=== PATIENT | male | born 1955 | race Caucasian/White ===

== ENCOUNTER 2018-05-21 16:17 | Inpatient (IN) | payer OTHER ==
--- NOTE | 2018-05-21 16:18 | EDPHY ---
HPI/HX/ROS/PE/MDM Narrative: CHIEF COMPLAINT: Black tarry stool HPI: The patient is 62 y/o male arriving via [facility] complaining of black tarry stool, onset 1.5 weeks ago. Per the patient, he saw his new PCP around 1 week ago. During that visit he was prescribed blood pressure medication, but he denies taking them as he started to feel more sick. Around 4 days ago he began to feel more weak than normal and fell several times due to the weakness. He denies hitting his head when falling or losing consciousness. This weakness increased today, so he called EMS. Per EMS, the patient had a syncopal episode [facility] While en route to the hospital the patient's hematocrit was 13 and he was given 1L IV NS. His last blood pressure was 113/ 87. He is denying abdominal pain, vomiting, urinary complaints. Denies history of diabetes, cardiac disease, abdominal surgeries, history of clotting factors or taking anticoagulants. No chest pain, shortness of breath, numbness, paresthesias, headache. He does admit to drinking alcohol every day, but he did not drink any today. He does not feel like his going through withdrawal right now. REVIEW OF SYSTEMS: Aside from elements discussed in the HPI, a comprehensive 10 system review of systems is otherwise negative. PMH: Denies SOCIAL HISTORY: Lives in [place], , employed, drinks alcohol daily PHYSICAL EXAM: General: Patient is alert, pale, tremulous. ENT: Eyes are normal to inspection. ENT inspection normal. Neck: Normal inspection. Full range of motion. Respiratory: No respiratory distress. Breath sounds normal bilaterally. Cardiovascular: Tachycardic. Strong peripheral pulses. Normal cap refill. Abdomen: Mild tenderness to palpation to LUQ, moderate umbilical hernia. There are no peritoneal signs. There are normal bowel sounds. Rectal: Dark brown to black stool visualized. Back: Normal to inspection. No tenderness to palpation. Skin: Normal color. No rash. Warm and dry. Extremities: Normal appearance. Full range of motion. Neuro: Oriented x3. Normal motor function. Normal sensory function. ED Course: 1617: I met EMS upon arrival 1624: BP:110/61, O2Sats: 98% on room air, Temp: 36.4 degrees 1625: Procedure: Ultrasound for GI bleed Limited abdominal ultrasound for GI bleed. 1) No abdominal aortic aneurysm identified. The images were saved on the ultrasound database. The procedure was performed by myself, Dr. Barlow. 1630: Per the IStat, patient's hematocrit is less than 15. 1640: Patient BP is 87/66. Patient will be type and crossed for a blood transfusion. 1646: EKG was ordered and interpreted by myself. Please see [employer] system for official reading. 1648: Patient's BP is 74/56, O negative blood ordered from the lab. 1657: Reassessed patient, he is comfortable with my plan of treatment and plan for admission to the ICU. 1705: O negative blood transfusion started. 1706: Rectal exam performed; dark brown to black stool visualized. Patient's hematocrit is 9.5 and his hemoglobin is 3.0 1710: Procedure: Fast ultrasound Limited bedside ultrasound was performed and interpreted by myself for the indication of: Possible GI bleed The exam was performed utilizing the thoracoabdominal emergency ultrasound protocol. Limited transthoracic echocardiogram: The pericardium was visualized and found to be negative for pericardial fluid. The study was negative for pericardial effusion. Limited abdominal ultrasound for GI bleed. 1) The right upper quadrant was visualized and was found to be negative for intraperitoneal fluid. 2) The left upper quadrant was visualized and found to be negative for intraperitoneal fluid. The study was felt to be negative for free intraperitoneal fluid. Limited pelvic ultrasound was conducted for abdominal tenderness. The bladder was visualized and did not reveal an anechoic area outside of the adjacent urinary bladder. Bladder was distended with urine. The images were saved on the ultrasound database. The procedure was performed by myself, Dr. Barlow. 1720: Patient's BP has increased to 92/54 after blood transfusion. 1725: Reassessed patient, his is now at the bedside. She reports that around 1 week ago the patient had a large bowel movement that was red. Since that episode he has had black tarry stool. The patient is feeling mildly improved after Protonix and Ativan. 1745: I consulted with Dr. Melendrez, fruit packer face and fill, regarding this patient. He will consult on this patient during his admission. 1750: I consulted with the hospitalist service, Dr. Arzate accepts admission of this patient. Head CT ordered as patient is still mildly lethargic. There is also a small healing laceration to the back of his head. MDM: ED CRITICAL CARE TIME: Critical care time spent by me, Dr. Barlow, exclusively with this patient was 65 minutes, exclusive of PA time and exclusive of procedures. The organ system at risk was GI, cardiovascular and I gave IVF, blood to prevent worsening of the patients condition. Consultation made to internal medicine and GI. - Data Points Laboratory Results: Laboratory Results 05/21/18 16:30 05/21/18 16:30 05/21/18 05/21/18 05/21/18 17:00 16:40 16:30 WBC RBC Hgb POC Hgb TNP Hct POC Hct < 15 % L* % (40-51) MCV MCH MCHC RDW Plt Count MPV Neut % (Auto) Lymph % (Auto) [place] % (Auto) Eos % (Auto) Baso % (Auto) Nucleat RBC Rel Count Absolute Neuts (auto) Absolute Lymphs (auto) Absolute Monos (auto) Absolute Eos (auto) Absolute Basos (auto) Absolute Nucleated RBC Immature Gran % Seg Neutrophils % Band Neutrophils % Lymphocytes % Monocytes % Eosinophils % Basophils % Metamyelocytes % Myelocytes % Promyelocytes % Blast Cells % Immature Gran # Absolute Seg Neuts Absolute Band Neuts Absolute Lymphocytes Absolute Monocytes Absolute Eosinophils Absolute Basophils Absolute Metamyelocyte Absolute Myelocytes Absolute Promyelocytes Absolute Plasma Cells Nucleated RBCs Absolute Blast Cells Plasma Cells % Platelet Estimate Polychromasia Oval Macrocytes Smear Review By PT INR APTT POC Sodium 139 mEq/L mEq/L (135-145) Sodium POC Potassium 3.8 mEq/L mEq/L (3.3-5.0) Potassium POC Chloride 103 mEq/L mEq/L (97-110) Chloride Carbon Dioxide Anion Gap POC BUN 31 mg/dL H mg/dL (7-23) BUN Creatinine POC Creatinine 0.9 mg/dL mg/dL (0.7-1.3) Estimated GFR Glucose POC Glucose 165 mg/dL H mg/dL (70-100) Calcium Total Bilirubin Conjugated Bilirubin Unconjugated Bilirubin AST ALT Alkaline Phosphatase Total Protein Albumin Lipase Stool Occult Bld Scrn Pending Patient ABO/Rh B POSITIVE Antibody Screen NEGATIVE Crossmatch IS Only See Detail 05/21/18 05/21/18 05/21/18 16:30 16:30 16:30 WBC 17.09 10^3/uL H 10^3/uL (3.80-9.50) RBC 0.95 10^6/uL L 10^6/uL (4.40-6.38) Hgb 3.0 g/dL L* g/dL (13.7-17.5) POC Hgb Hct 9.5 % L* % (40.0-51.0) POC Hct MCV 100.0 fL H fL (81.5-99.8) MCH 31.6 pg pg (27.9-34.1) MCHC 31.6 g/dL L g/dL (32.4-36.7) RDW 17.5 % H % (11.5-15.2) Plt Count 370 10^3/uL 10^3/uL (150-400) MPV 9.0 fL fL (8.7-11.7) Neut % (Auto) 82.8 % H % (39.3-74.2) Lymph % (Auto) 5.4 % L % (15.0-45.0) [place] % (Auto) 9.7 % % (4.5-13.0) Eos % (Auto) 0.1 % L % (0.6-7.6) Baso % (Auto) 0.1 % L % (0.3-1.7) Nucleat RBC Rel Count 1.0 % H % (0.0-0.2) Absolute Neuts (auto) 14.16 10^3/uL H 10^3/uL (1.70-6.50) Absolute Lymphs (auto) 0.93 10^3/uL L 10^3/uL (1.00-3.00) Absolute Monos (auto) 1.65 10^3/uL H 10^3/uL (0.30-0.80) Absolute Eos (auto) 0.01 10^3/uL L 10^3/uL (0.03-0.40) Absolute Basos (auto) 0.01 10^3/uL L 10^3/uL (0.02-0.10) Absolute Nucleated RBC 0.17 10^3/uL H 10^3/uL (0-0.01) Immature Gran % 1.9 % H % (0.0-1.1) Seg Neutrophils % 88.2 % % Band Neutrophils % 0.0 % % Lymphocytes % 9.1 % % Monocytes % 2.7 % % Eosinophils % 0.0 % % Basophils % 0.0 % % Metamyelocytes % 0.0 % % Myelocytes % 0.0 % % Promyelocytes % 0.0 % % Blast Cells % 0.0 % % Immature Gran # 0.33 10^3/uL H 10^3/uL (0.00-0.10) Absolute Seg Neuts 15.07 10^/uL H 10^/uL (1.70-6.50) Absolute Band Neuts 0.00 10^3/uL 10^3/uL (0.00-0.70) Absolute Lymphocytes 1.56 10^3/uL 10^3/uL (1.00-3.00) Absolute Monocytes 0.46 10^3/uL 10^3/uL (0.30-0.80) Absolute Eosinophils 0.00 10^3/uL L 10^3/uL (0.03-0.40) Absolute Basophils 0.00 10^3/uL L 10^3/uL (0.02-0.10) Absolute Metamyelocyte 0.00 10^3/mL 10^3/mL (0.00-0.00) Absolute Myelocytes 0.00 10^3/mL 10^3/mL (0.00-0.00) Absolute Promyelocytes 0.00 10^3/uL 10^3/uL (0.00-0.00) Absolute Plasma Cells 0.00 10^3/uL 10^3/uL (0.00-0.00) Nucleated RBCs 0 /100 WBC /100 WBC (0-0) Absolute Blast Cells 0.00 10^3/uL 10^3/uL (0.00-0.00) Plasma Cells % 0.0 % % Platelet Estimate INCREASED H (ADEQ) Polychromasia 3+ H Oval Macrocytes 1+ H Smear Review By Pending PT 14.8 SEC SEC (12.0-15.0) INR 1.14 (0.83-1.16) APTT 20.0 SEC L SEC (23.0-38.0) POC Sodium Sodium 135 mEq/L mEq/L (135-145) POC Potassium Potassium 4.1 mEq/L mEq/L (3.3-5.0) POC Chloride Chloride 106 mEq/L mEq/L (97-110) Carbon Dioxide 18 mEq/l L mEq/l (22-31) Anion Gap 11 mEq/L mEq/L (6-14) POC BUN BUN 33 mg/dL H mg/dL (7-23) Creatinine 0.8 mg/dL mg/dL (0.7-1.3) POC Creatinine Estimated GFR > 60 Glucose 156 mg/dL H mg/dL (70-100) POC Glucose Calcium 7.7 mg/dL L mg/dL (8.5-10.4) Total Bilirubin 0.6 mg/dL mg/dL (0.1-1.4) Conjugated Bilirubin 0.2 mg/dL mg/dL (0.0-0.5) Unconjugated Bilirubin 0.4 mg/dL mg/dL (0.0-1.1) AST 23 IU/L IU/L (17-59) ALT 29 IU/L IU/L (21-72) Alkaline Phosphatase 38 IU/L IU/L (38-126) Total Protein 4.7 g/dL L g/dL (6.3-8.2) Albumin 2.4 g/dL L g/dL (3.5-5.0) Lipase 90 IU/L IU/L (23-300) Stool Occult Bld Scrn Patient ABO/Rh Antibody Screen Crossmatch IS Only 05/21/18 16:28 WBC RBC Hgb POC Hgb TNP Hct POC Hct < 15 % L* % (40-51) MCV MCH MCHC RDW Plt Count MPV Neut % (Auto) Lymph % (Auto) [place] % (Auto) Eos % (Auto) Baso % (Auto) Nucleat RBC Rel Count Absolute Neuts (auto) Absolute Lymphs (auto) Absolute Monos (auto) Absolute Eos (auto) Absolute Basos (auto) Absolute Nucleated RBC Immature Gran % Seg Neutrophils % Band Neutrophils % Lymphocytes % Monocytes % Eosinophils % Basophils % Metamyelocytes % Myelocytes % Promyelocytes % Blast Cells % Immature Gran # Absolute Seg Neuts Absolute Band Neuts Absolute Lymphocytes Absolute Monocytes Absolute Eosinophils Absolute Basophils Absolute Metamyelocyte Absolute Myelocytes Absolute Promyelocytes Absolute Plasma Cells Nucleated RBCs Absolute Blast Cells Plasma Cells % Platelet Estimate Polychromasia Oval Macrocytes Smear Review By PT INR APTT POC Sodium 138 mEq/L mEq/L (135-145) Sodium POC Potassium 3.8 mEq/L mEq/L (3.3-5.0) Potassium POC Chloride 103 mEq/L mEq/L (97-110) Chloride Carbon Dioxide Anion Gap POC BUN 33 mg/dL H mg/dL (7-23) BUN Creatinine POC Creatinine 0.8 mg/dL mg/dL (0.7-1.3) Estimated GFR Glucose POC Glucose 171 mg/dL H mg/dL (70-100) Calcium Total Bilirubin Conjugated Bilirubin Unconjugated Bilirubin AST ALT Alkaline Phosphatase Total Protein Albumin Lipase Stool Occult Bld Scrn Patient ABO/Rh Antibody Screen Crossmatch IS Only Medications Given: Discontinued Medications Lorazepam (Ativan Injection) 1 mg IVP EDNOW ONE Stop: 05/21/18 16:32 Last Admin: 05/21/18 16:35 Dose: 1 mg Pantoprazole Sodium (Protonix) 80 mg IVP EDNOW ONE Stop: 05/21/18 17:37 Last Admin: 05/21/18 17:47 Dose: 80 mg Point of Care Test Results: Chemistry 05/21/18 05/21/18 16:40 16:28 POC Sodium 139 mEq/L mEq/L 138 mEq/L mEq/L (135-145) (135-145) POC Potassium 3.8 mEq/L mEq/L 3.8 mEq/L mEq/L (3.3-5.0) (3.3-5.0) POC Chloride 103 mEq/L mEq/L 103 mEq/L mEq/L (97-110) (97-110) POC BUN 31 mg/dL H mg/dL 33 mg/dL H mg/dL (7-23) (7-23) POC Creatinine 0.9 mg/dL mg/dL 0.8 mg/dL mg/dL (0.7-1.3) (0.7-1.3) POC Glucose 165 mg/dL H mg/dL 171 mg/dL H mg/dL (70-100) (70-100) ISTAT H&H 05/21/18 05/21/18 16:40 16:28 POC Hgb TNP TNP POC Hct < 15 % L* % < 15 % L* % (40-51) (40-51) General Time Seen by Provider: 05/21/18 16:18 Initial Vital Signs: Initial Vital Signs Temperature (C) 36.4 C 05/21/18 16:27 Heart Rate 116 H 05/21/18 16:27 Respiratory Rate 20 05/21/18 16:27 Blood Pressure 110/61 05/21/18 16:27 O2 Sat (%) 98 05/21/18 16:27 O2 Delivery Mode Room Air Allergies/Adverse Reactions: No Known Allergies Allergy (Unverified 05/21/18 16:27) Home Medications: Medication Instructions Recorded Ibuprofen [Motrin (*)] 600 mg PO BID PRN 05/21/18 Departure - Departure Disposition: [facility] Inpatient Acute Clinical Impression: Alcoholism GI bleed Qualifiers: GI bleed type/associated pathology: unspecified gastrointestinal hemorrhage type Qualified Code(s): K92.2 - Gastrointestinal hemorrhage, unspecified Anemia Qualifiers: Anemia type: other cause Other causes of anemia: other cause, not classified Qualified Code(s): D64.89 - Other specified anemias Condition: Serious Report Scribed for: Errol Barlow Report Scribed by: Marleny Salazar Date of Report: 05/21/18 Time of Report: 16:31 Physician Review and Approval Statement: Portions of this note were transcribed by an ED scribe. I personally performed the history, physical exam, and medical decision making; and confirm the accuracy of the information in the transcribed note.
[2018-05-21] MEDS ORDERED: LORazepam 2 MG/ML INJ IVP ONE (16:31)
[2018-05-21 16:49] LABS: INR 1.14 (0.83-1.16); PROTIME(PATIENT) 14.8 SEC (12.0-15.0)
[2018-05-21 17:07] LABS: PLATELET COUNT 370 10^3/uL (150-400)
[2018-05-21] MEDS ORDERED: PANTOPRAZOLE SODIUM 40 MG VIAL IVP ONE (17:36)
[2018-05-21] MEDS ORDERED: ONDANSETRON 4 MG/2 ML VIAL IVP PRN (18:00)
[2018-05-21] MEDS ORDERED: NS 1,000 ML IV SCH (18:00)
[2018-05-21] MEDS ORDERED: ONDANSETRON DISINTEGRATING 4 MG TAB PO PRN (18:00)
[2018-05-21] MEDS ORDERED: PROMETHAZINE HCL 25 MG TAB PO PRN (18:00)
[2018-05-21] MEDS ORDERED: PROMETHAZINE HCL 25 MG/ML INJ IVP PRN (18:00)
[2018-05-21] MEDS ORDERED: FLUMAZENIL 0.5 MG/5 ML MDV IVP PRN (18:05)
[2018-05-21] MEDS ORDERED: LORazepam 2 MG/ML INJ IVP PRN (18:05)
[2018-05-21] MEDS ORDERED: LORazepam 1 MG TAB PO PRN (18:05)
--- NOTE | 2018-05-21 19:10 | PDGENHP ---
History and Physical - Chief Complaint Acute melena - History of Present Illness Primary care provider: [facility] in [place] HPI: 62-year-old male presents with acute melena characterized as black and tarry stools as well as bright red blood per rectum, with onset of symptoms approximately 1.5 weeks ago and duration persistent thereafter. Patient's reports that he has also been notably spacey, visibly weak, and he has had at least 1 associated fall, striking the posterior occiput of his head, resulting in laceration. His last bright red blood per rectum was approximately 1 week ago, and his most recent melanotic stool was on the day prior to presentation. His oral intake has been particularly port during this interval, as he has been experiencing intermittent mid epigastric pain. The patient has not had any overt vomiting. He reports that he has been drinking heavily, as recently as 1 week ago, but with his most recent alcohol intake approximately 3 days ago. He does endorse that he has experienced tremulousness as result of alcohol withdrawal in the past, but no seizure. History Information - Allergies/Home Medication List Allergies/Adverse Reactions: No Known Allergies Allergy (Unverified 05/21/18 16:27) Home Medications: Ibuprofen [Motrin (*)] 600 mg PO BID PRN 05/21/18 [Last Taken Unknown] I have personally reviewed and updated: family history, medical history, social history, surgical history - Past Medical History Additional medical history: Hypertension but has not initiated home antihypertensive medications as yet. Chronic lower back pain, takes ibuprofen 600 mg approximately 1-2 times daily - Surgical History Additional surgical history: No surgery. 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 [place], but they [place] Review of Systems Review of Systems: ROS: 10pt was reviewed & negative except for what was stated in HPI & below Constitutional: Reports: weakness Gastrointestinal: Reports: black stools, blood streaked stools, abdominal pain Physical Exam Physical Exam: Temp Pulse Resp BP Pulse Ox 37.1 C 92 15 118/61 99 05/21/18 18:56 05/21/18 18:56 05/21/18 18:56 10/16/18 18:56 05/21/18 18:56 Constitutional: no apparent distress, chronically ill appearing, uncomfortable, other (Pale appearing), No not in pain (Mild midepigastric) Eyes: anicteric sclera, EOMI, pale conjunctiva Ears, Nose, Mouth, Throat: other (Dense scarring over his nose) Cardiovascular: tachycardia, No systolic murmur, No irregularly irregular, No edema Respiratory: no respiratory distress, no rales or rhonchi, clear to auscultation Gastrointestinal: normoactive bowel sounds, tenderness (Midepigastric), guarding (Voluntary), No distension Skin: No rash Musculoskeletal: other (Full range of motion without any inducible pain) Neurologic: sensation intact bilaterally, other (Bilateral upper extremity tremulousness), No AAOx3 (Alert awake oriented x2 to person and time, not place) , No weakness (Motor strength 5/5 bilateral lower extremities), No asterixes, No facial droop Psychiatric: not anxious, flat affect, poor memory, other (Concentration 7/7, naming 2/3), No agitated Lab Data & Imaging Review 05/21/18 16:30 05/21/18 16:30 WBC 17.09 10^3/uL (3.80-9.50) H 05/21/18 16:30 RBC 0.95 10^6/uL (4.40-6.38) L 05/21/18 16:30 Hgb 3.0 g/dL (13.7-17.5) L* 05/21/18 16:30 POC Hgb TNP 05/21/18 16:40 Hct 9.5 % (40.0-51.0) L* 05/21/18 16:30 POC Hct < 15 % (40-51) L* 05/21/18 16:40 MCV 100.0 fL (81.5-99.8) H 05/21/18 16:30 MCH 31.6 pg (27.9-34.1) 05/21/18 16:30 MCHC 31.6 g/dL (32.4-36.7) L 05/21/18 16:30 RDW 17.5 % (11.5-15.2) H 05/21/18 16:30 Plt Count 370 10^3/uL (150-400) 05/21/18 16:30 MPV 9.0 fL (8.7-11.7) 05/21/18 16:30 Neut % (Auto) 82.8 % (39.3-74.2) H 05/21/18 16:30 Lymph % (Auto) 5.4 % (15.0-45.0) L 05/21/18 16:30 [place] % (Auto) 9.7 % (4.5-13.0) 05/21/18 16:30 Eos % (Auto) 0.1 % (0.6-7.6) L 05/21/18 16:30 Baso % (Auto) 0.1 % (0.3-1.7) L 05/21/18 16:30 Nucleat RBC Rel Count 1.0 % (0.0-0.2) H 05/21/18 16:30 Absolute Neuts (auto) 14.16 10^3/uL (1.70-6.50) H 05/21/18 16:30 Absolute Lymphs (auto) 0.93 10^3/uL (1.00-3.00) L 05/21/18 16:30 Absolute Monos (auto) 1.65 10^3/uL (0.30-0.80) H 05/21/18 16:30 Absolute Eos (auto) 0.01 10^3/uL (0.03-0.40) L 05/21/18 16:30 Absolute Basos (auto) 0.01 10^3/uL (0.02-0.10) L 05/21/18 16:30 Absolute Nucleated RBC 0.17 10^3/uL (0-0.01) H 05/21/18 16:30 Immature Gran % 1.9 % (0.0-1.1) H 05/21/18 16:30 Seg Neutrophils % 88.2 % 05/21/18 16:30 Band Neutrophils % 0.0 % 05/21/18 16:30 Lymphocytes % 9.1 % 05/21/18 16:30 Monocytes % 2.7 % 05/21/18 16:30 Eosinophils % 0.0 % 05/21/18 16:30 Basophils % 0.0 % 05/21/18 16:30 Metamyelocytes % 0.0 % 05/21/18 16:30 Myelocytes % 0.0 % 05/21/18 16:30 Promyelocytes % 0.0 % 05/21/18 16:30 Blast Cells % 0.0 % 05/21/18 16:30 Immature Gran # 0.33 10^3/uL (0.00-0.10) H 05/21/18 16:30 Absolute Seg Neuts 15.07 10^/uL (1.70-6.50) H 05/21/18 16:30 Absolute Band Neuts 0.00 10^3/uL (0.00-0.70) 05/21/18 16:30 Absolute Lymphocytes 1.56 10^3/uL (1.00-3.00) 05/21/18 16:30 Absolute Monocytes 0.46 10^3/uL (0.30-0.80) 05/21/18 16:30 Absolute Eosinophils 0.00 10^3/uL (0.03-0.40) L 05/21/18 16:30 Absolute Basophils 0.00 10^3/uL (0.02-0.10) L 05/21/18 16:30 Absolute Metamyelocyte 0.00 10^3/mL (0.00-0.00) 05/21/18 16:30 Absolute Myelocytes 0.00 10^3/mL (0.00-0.00) 05/21/18 16:30 Absolute Promyelocytes 0.00 10^3/uL (0.00-0.00) 05/21/18 16:30 Absolute Plasma Cells 0.00 10^3/uL (0.00-0.00) 05/21/18 16:30 Nucleated RBCs 0 /100 WBC (0-0) 05/21/18 16:30 Absolute Blast Cells 0.00 10^3/uL (0.00-0.00) 05/21/18 16:30 Plasma Cells % 0.0 % 05/21/18 16:30 Platelet Estimate INCREASED (ADEQ) H 05/21/18 16:30 Polychromasia 3+ H 05/21/18 16:30 Oval Macrocytes 1+ H 05/21/18 16:30 PT 14.8 SEC (12.0-15.0) 05/21/18 16:30 INR 1.14 (0.83-1.16) 05/21/18 16:30 APTT 20.0 SEC (23.0-38.0) L 05/21/18 16:30 VBG Lactic Acid 3.6 mmol/L (0.7-2.1) H 05/21/18 18:00 POC Sodium 139 mEq/L (135-145) 05/21/18 16:40 Sodium 135 mEq/L (135-145) 05/21/18 16:30 POC Potassium 3.8 mEq/L (3.3-5.0) 05/21/18 16:40 Potassium 4.1 mEq/L (3.3-5.0) 05/21/18 16:30 POC Chloride 103 mEq/L (97-110) 05/21/18 16:40 Chloride 106 mEq/L (97-110) 05/21/18 16:30 Carbon Dioxide 18 mEq/l (22-31) L 05/21/18 16:30 Anion Gap 11 mEq/L (6-14) 05/21/18 16:30 POC BUN 31 mg/dL (7-23) H 05/21/18 16:40 BUN 33 mg/dL (7-23) H 05/21/18 16:30 Creatinine 0.8 mg/dL (0.7-1.3) 05/21/18 16:30 POC Creatinine 0.9 mg/dL (0.7-1.3) 05/21/18 16:40 Estimated GFR > 60 05/21/18 16:30 Glucose 156 mg/dL (70-100) H 05/21/18 16:30 POC Glucose 165 mg/dL (70-100) H 05/21/18 16:40 Calcium 7.7 mg/dL (8.5-10.4) L 05/21/18 16:30 Total Bilirubin 0.6 mg/dL (0.1-1.4) 05/21/18 16:30 Conjugated Bilirubin 0.2 mg/dL (0.0-0.5) 05/21/18 16:30 Unconjugated Bilirubin 0.4 mg/dL (0.0-1.1) 05/21/18 16:30 AST 23 IU/L (17-59) 05/21/18 16:30 ALT 29 IU/L (21-72) 05/21/18 16:30 Alkaline Phosphatase 38 IU/L (38-126) 05/21/18 16:30 Total Protein 4.7 g/dL (6.3-8.2) L 05/21/18 16:30 Albumin 2.4 g/dL (3.5-5.0) L 05/21/18 16:30 Lipase 90 IU/L (23-300) 05/21/18 16:30 Stool Occult Bld Scrn POSITIVE (NEGATIVE) H 05/21/18 17:00 Patient ABO/Rh B POSITIVE 05/21/18 16:30 Antibody Screen NEGATIVE 05/21/18 16:30 Crossmatch IS Only See Detail 05/21/18 16:30 Visualized and Interpreted EKG results: Yes EKG Interpretation: Positive for: other (Sinus tachycardia with ST depression laterally, PACs) Assessment & Plan Assessment: 62-year-old male presents with acute upper gastrointestinal hemorrhage with resultant acute blood loss anemia Plan: 1. Upper gastrointestinal hemorrhage. Acute, most likely secondary to gastric or proximal small bowel ulceration in the setting of heavy alcohol use as well as regular use of NSAIDs with resultant melena and 1 episode of bright red blood per rectum, likely secondary to a brisk bleed -resulting in severe anemia, discussed below -discussed with Dr. Errol Barlow, he has discussed with Dr. Stephen Melendrez who was not recommended octreotide drip, given the likely absence of varices with normal liver panel, no hematemesis -admit to ICU and get emergent upper endoscopy -IV PPI twice daily -NPO with IV fluids 2. Acute blood loss anemia. Evidenced by hemoglobin level of 3, MCV is currently 100, most likely secondary to reduced marrow production secondary to alcoholism with suspected iron deficient component given his blood loss -transfusing 2 units in the emergency department, repeat hemoglobin level q.4 hours and continue transfuse until hemoglobin is greater than 7 -resulting in hypotension in the emergency department, blood pressure is currently 100-110 status post initiation of blood product as well as IV fluids 3. Alcoholism with suspected acute alcohol withdrawal. Patient reports prior history of withdrawal symptoms, he reports he is currently alcohol free for approximately 72 hr and his tremulousness is most likely secondary to withdrawal -received 1 dose of Ativan in the emergency department, continue on CIWA protocol -will need alcohol cessation resources prior to discharge -check pre-albumin level for signs of malnutrition given his chronic alcoholism -multivitamin, folate, thiamine 4. Head trauma. Acute, a laceration on posterior scalp, get noncontrast head CT stat 5. Hypertension. Chronic, recent diagnosis, hold on any antihypertensives at this time given his hypotension on presentation 6. Chronic lower back pain. Hold NSAIDs, Tylenol first-line comma Robaxin second-line comma morphine for breakthrough as well as while NPO 7. Acute metabolic acidosis. Most likely secondary to volume loss, check lactic acid level given hypotension Diet. NPO with IV fluids Prophylaxis. High risk patient, SCDs, hold pharm given bleed Code. Full code per patient, is MD ACE Disposition. Anticipated discharge uncertain this time, anticipated length stay is greater than 48 hr for reasonable medical necessity including acute upper gastrointestinal hemorrhage with severe acute blood loss anemia requiring ICU level of care as outlined above. 40 min of critical care time spent with this patient, at bedside and coordinating care with Dr. Errol Barlow, specifically addressing the patient' s severe blood loss anemia and upper gastrointestinal hemorrhage which render him critically ill with high risk of worsening morbidity and/or mortality.
[2018-05-21] MEDS ORDERED: METHOCARBAMOL 750 MG TAB PO PRN (19:19)
[2018-05-21] MEDS ORDERED: ACETAMINOPHEN 325 MG TAB PO PRN (19:19)
[2018-05-21] MEDS: THIAMINE HCL 500 MG in NS 100 ML IV SCH (19:50)
[2018-05-21] MEDS ORDERED: PANTOPRAZOLE SODIUM 40 MG VIAL IVP SCH ×2 (21:00→21:30)
--- NOTE | 2018-05-21 21:18 | SOAPPROG ---
SOAP Progress Note Assessment/Plan: Assessment/Plan: Chart reviewed, pt. not seen yet, formal note to follow. Overall, suspect UGI bleed, considering melena, increased BUN, epigastric pain. In turn, suspect PUD from ibuprofen. Good synthetic function. - increase PPI - EGD tomorrow Thanks! 05/21/18 21:17 Objective: Vital Signs Temp Pulse Resp BP Pulse Ox 37.6 C 84 17 101/57 L 97 05/21/18 20:00 05/21/18 20:00 05/21/18 20:00 05/21/18 20:00 05/21/18 20:00 Laboratory Results 05/21/18 20:00 05/20/18 05/21/18 05/22/18 05:59 05:59 05:59 Intake Total 600 Balance 600 PT 14.8 SEC (12.0-15.0) 05/21/18 16:30 INR 1.14 (0.83-1.16) 05/21/18 16:30 ICD10 Worksheet Patient Problems: Problems Problem Status Onset Alcoholism Acute Anemia Acute GI bleed Acute
[2018-05-21] MEDS: POTASSIUM Cl (KCl) 20 MEQ in 1/2 NS 1,000 ML IV SCH (21:46)
--- NOTE | 2018-05-21 22:50 | CPEKG ---
Test Reason : OPEN Blood Pressure : / mmHG Vent. Rate : 110 BPM Atrial Rate : 112 BPM P-R Int : 150 ms QRS Dur : 104 ms QT Int : 341 ms P-R-T Axes : 086 067 040 degrees QTc Int : 462 ms Sinus tachycardia Multiple premature complexes, vent & supraven Borderline ST depression, diffuse leads Confirmed by Errol Barlow ([id number]) on 05/21/2018 10:50:17 PM Referred By: Confirmed By:Errol Barlow
[2018-05-22] MEDS: PANTOPRAZOLE SODIUM 40 MG VIAL IVP SCH ×2 (01:58→08:23)
[2018-05-22] MEDS: POTASSIUM Cl (KCl) 20 MEQ in 1/2 NS 1,000 ML IV SCH (08:13)
[2018-05-22] MEDS: THIAMINE HCL 500 MG in NS 100 ML IV SCH (08:23)
--- NOTE | 2018-05-22 09:01 | PDANEPAE ---
ANE Past Medical History - Cardiovascular History Hx Hypertension: Yes - Pulmonary History Hx Oxygen in Use at Home: No Hx Sleep Apnea: No - Endocrine History Hx Diabetes: No Obesity: no - Other Health History Other Health History: Alcoholism ANE Review of Systems Review of Systems: - Systems Gastrointestinal: Reports: rectal bleeding ANE Patient History - Allergies Allergies/Adverse Reactions: No Known Allergies Allergy (Unverified 05/21/18 16:27) - Home Medications Home medications: home medication list seen and reviewed Home Medications: Ibuprofen [Motrin (*)] 600 mg PO BID PRN 05/21/18 [Last Taken Unknown] - NPO status NPO Status: no food or drink >8 hours - Anes Hx Anes Hx: no prior problems - Smoking Hx Smoking Status: Never smoked - Alcohol Use Alcohol Use: Heavy ANE Labs/Vital Signs - Labs Result Diagrams: 05/22/18 06:30 05/21/18 16:30 - Vital Signs Blood Pressure: 103/64 Heart Rate: 69 Respiratory Rate: 17 O2 Sat (%): 91 Height: 177.8 cm Weight: 70 kg ANE Physical Exam - Airway Neck exam: FROM Mallampati Score: Class 2 Mouth exam: normal dental/mouth exam - Pulmonary Pulmonary: no respiratory distress, no rales or rhonchi, clear to auscultation - Cardiovascular Cardiovascular: regular rate and rhythym, no murmur, rub, or gallop - ASA Status ASA Status: III ANE Anesthesia Plan Anesthesia Plan: MAC
[2018-05-22] MEDS ORDERED: NALOXONE HCL 0.4 MG/ML INJ IVP PRN (09:10)
[2018-05-22] MEDS ORDERED: PROMETHAZINE HCL 25 MG/ML INJ IVP PRN (09:10)
[2018-05-22] MEDS ORDERED: ONDANSETRON 4 MG/2 ML VIAL IVP PRN (09:10)
[2018-05-22] MEDS ORDERED: fentaNYL 100 MCG/2 ML INJ IVP PRN (09:10)
[2018-05-22] MEDS ORDERED: DIAZEPAM 5 MG/ML 1 ML SYR IVP PRN (09:10)
[2018-05-22] MEDS ORDERED: LR 500 ML IV PRN (09:10)
[2018-05-22] MEDS ORDERED: PROPOFOL 200 MG/20 ML VIAL ONE (09:15)
--- NOTE | 2018-05-22 10:00 | POSTANESTH ---
Post Anesthetic Evaluation Cardiovascular Status: Normal, Stable, Similar to Pre-Op Cond Respiratory Status: Normal, Stable, Similar to Pre-op Cond. Level of Consciousness/Mental Status: Can Participate in Eval, Mildly Sleepy, Arousable Pain Control: Adequate, Prn Tx Ordered Nausea/Vomiting Control: Adequate, Prn Tx Ordered Complications Possibly Related to Anesthesia: None Noted
--- NOTE | 2018-05-22 10:10 | HOSPPROG ---
Hospitalist Progress Note Assessment/Plan: 62 yo M w melana, brbpr, ABLA UGIB: source of blood loss continue ppi prelim report is 2 non bleeding ulcers etiology likely alcohol plus NSAIDS alcohol: endorse frequent use not in withdrawal now continue ciwa indet trop: likely 2/2 SEVERE anemia reasonable to stress prior to dc proph: scd's hypoalbuminemia: likely nutritional plus minus liver disease follow elevated lactate: result of severe anemia not sepsis no need to follow dispo: to floor inpatient Subjective: case d/w dr amato. god hct bump from 3 units packed cells Objective: Vital Signs Temp Pulse Resp BP Pulse Ox 37.1 C 71 18 103/61 99 05/22/18 08:00 05/22/18 09:59 05/22/18 09:59 05/22/18 09:59 05/22/18 09:59 Laboratory Results 05/22/18 06:30 05/21/18 05/22/18 05/23/18 05:59 05:59 05:59 Intake Total 2680 Output Total 300 100 Balance 2380 -100 PT 14.8 SEC (12.0-15.0) 05/21/18 16:30 INR 1.14 (0.83-1.16) 05/21/18 16:30 - Physical Exam Constitutional: no apparent distress, appears nourished Eyes: PERRL, anicteric sclera Ears, Nose, Mouth, Throat: moist mucous membranes, hearing normal Cardiovascular: regular rate and rhythym, no murmur, rub, or gallop Respiratory: no respiratory distress, no rales or rhonchi Gastrointestinal: normoactive bowel sounds, soft, non-tender abdomen, No guarding, No rebound, No distension Genitourinary: no bladder fullness, No mcclure in urethra Skin: warm, normal color Musculoskeletal: full muscle strength, no muscle tenderness Neurologic: AAOx3 Psychiatric: interacting appropriately ICD10 Worksheet Patient Problems: Problems Problem Status Onset Alcoholism Acute Anemia Acute GI bleed Acute
--- NOTE | 2018-05-22 10:30 | GCON ---
GI INPATIENT CONSULTATION DATE OF CONSULTATION: 05/22/2018 REFERRING PHYSICIAN: Yovani Arzate MD HISTORY OF PRESENT ILLNESS: I was kindly requested to see the patient by Dr. Yovani Arzate in consultation for a chief complaintof melena. He is a 62-year- old white male who began to develop the above several weeks ago. He describes black, tarry stool, but at times bright red. With this, he has been feeling weak and did have a fall. He has had decreased oral intake. He has been having mid epigastric pain, intermittent. He denies vomiting. He uses ibuprofen 600 mg once or twice daily. He is an alcoholic, with his last alcohol intake 3 days ago. PAST MEDICAL HISTORY: 1. As above. 2. Chronic lower back pain. 3. Otherwise, noncontributory. MEDICATIONS: Home medicationsinclude the above. Inpatient medications, include Protonix 40 mg IV q.i.d. ALLERGIES: No known drug allergies. SOCIAL HISTORY: As above. FAMILY HISTORY: Negative for similar bleeding. REVIEW OF SYSTEMS: Positive pertinent review of systems as per my HPI. Otherwise, complete review of systems is negative. PHYSICAL EXAM: CONSTITUTIONAL: Nontoxic-appearing, pleasant gentleman. VITAL SIGNS: Stable. SKIN: Warm, dry. EYES: Pupils equal, round, reactive to light and accommodation. EARS, NOSE, MOUTH, THROAT: Oropharynx without masses. Moist mucosa. CARDIOVASCULAR: Normal S2. Normal PMI. RESPIRATORY: Lungs clear to auscultation and percussion anteriorly. GASTROINTESTINAL: Abdomen with mild epigastric tenderness, no rebound. NEUROLOGIC: Grossly nonfocal. Cranial nerves grossly intact. PSYCHIATRIC: Orientation, insight appropriate. MUSCULOSKELETAL: Strength grossly normal throughout, normal station. LABORATORY DATA: Normal coags. Stool Hemoccult positive. Initial white count 17,000, but now 12,000. Initial hematocrit 9.5%, but after transfusions, now 25.8%. BUN 31. Glucose 165. Normal liver function tests. Normal platelet count. Lipase 90. ASSESSMENT: Gastrointestinal bleeding, with mostly melena, along with some mid epigastric abdominal pain and ibuprofen use. Overall, suspect peptic ulcer disease. PLAN: 1. Urgent upper endoscopy. 2. Further management depending on the above. Thank you for allowing me to help in the management of this patient. /[id number]/MODL MTDD
--- NOTE | 2018-05-22 10:39 | GIREPORT ---
[facility] - Endoscopy Department Patient Name: Blaise Medrano Procedure Date: 05/22/2018 9:33 AM Patient Type: Inpatient Attending MD/ ER Physician: Stephen Melendrez MD Procedure: Upper GI endoscopy Indications: Note dictated, consult appreciated. Melena. Providers: Stephen Melendrez MD, FACG Referring MD: [facility] Hospitalist service Medicines: Sedation Administered by an Anesthesia Professional Complications: No immediate complications. Description of Procedure: After obtaining informed consent, the endoscope was passed under direct vision. Throughout the procedure, the patient's blood pressure, pulse, and oxygen saturations were monitored continuously. The Endoscope was intro duced through the mouth, and advanced to the second part of duodenum. Findings: The esophagus was normal. The entire examined stomach was normal. Biopsies were taken with a cold forceps for Helicobacter pylori testing from the cardia and antrum. Two non-bleeding cratered duodenal ulcers were found in the posterior duodenal bulb and the "turn" into the first portion of the duodenum, taisha th approximately 14 mm in size. Relatively bland, with no further active bleeding, and no obvious visible vessel, etc. Estimated Blood Loss: Estimated blood loss: none. Post Op Diagnosis: Large duodenal ulcers, as above. Now, relatively bland, with no further bleeding, and relatively low risk of rebleeding. Suspect due to ibuprof en use. Recommendation: - Pathology results for H. pylori pending. - feed - buffcap IV - change IV PPI to oral bid I will sign off; I will f/u on bx for H. pylori. Otherwise, as an outpt ., recommend: a) no further ibuprofen, NSAIDs, aspirin b) generic PPI bid for eight weeks c) iron replacement therapy for eight weeks d) f/u federally-funded clinic Else, please call if we can be of further help [phone] Thank you for allowing me to help in the management of this patient. Attending Participation: I personally performed the entire procedure. Parvin Mitchell MD Stephen Melendrez MD 05/22/2018 10:39:04 AM This report has been signed electronicallyPeter MD Parvin Number of Addenda: 0 Note Initiated On: 05/22/2018 9:33 AM [email or web address]
[2018-05-22] MEDS: FOLIC ACID 1 MG TAB PO SCH (11:08)
[2018-05-22] MEDS: MULTIVITAMINS 1 EACH TAB PO SCH (11:08)
[2018-05-22] MEDS: PANTOPRAZOLE SODIUM 40 MG TAB PO SCH ×2 (11:16→20:58)
--- NOTE | 2018-05-22 12:16 | PDMN ---
Medical Necessity Medical necessity: Pt meets inpt criteria per MD order and MCG M-180, Gastrointestinal Bleeding, Upper. 62 y/o admitted w/acute blood loss anemia in setting of acute upper GI bleed requiring emergent upper endoscopy, blood transfusion. Hypotensive and tachycardic upon admission, hemoglobin and hct 3.0 , 9.5 on admission, acute metabolic acidosis, VBG lactic acid 3.6, following elev troponins. Other comorbidities include alcoholism, on CIWA protocol, chronic lower back pain. ICU monitoring, anticipate>2MN for management of above.
--- NOTE | 2018-05-22 15:19 | ASMTCASEMG ---
Living Arrangements What is your living Answers: With Spouse arrangement? Who do you live with? Type Of Residence What kind of residence do Answers: House you live in? Type of Residence Facility Name Notes: [facility] in [place] Discharge Plan Comments Coordination Status Comments Notes: Patient is a 62yo male with acute upper gastrointestinal hemorrhage with resultant acute blood loss anemia. Patient was admitted for upper GI hemorrhage, acute blood loss anemia, alcoholism, head trauma from a fall, hypertension, and acute metabolic acidosis. PT is ordered.D/C plan TBD. CM will follow. Date Signed: 05/22/2018 03:18 PM Electronically Signed By:Lorena Munoz LCSW
[2018-05-23] MEDS: MULTIVITAMINS 1 EACH TAB PO SCH (07:40)
[2018-05-23] MEDS: PANTOPRAZOLE SODIUM 40 MG TAB PO SCH (07:41)
[2018-05-23] MEDS: FOLIC ACID 1 MG TAB PO SCH (07:41)
[2018-05-23] MEDS: THIAMINE HCL 500 MG in NS 100 ML IV SCH (07:56)
[2018-05-23 08:11] VITALS: BP 136/74
[2018-05-23] MEDS ORDERED: SODIUM FERRIC GLUCONAT/SUCROSE 125 MG in NS 100 ML IV SCH (09:00)
--- NOTE | 2018-05-23 12:54 | HOSPPROG ---
Hospitalist Progress Note Assessment/Plan: 62 yo M w melana, brbpr, ABLA UGIB: source of blood loss continue ppi prelim report is 2 non bleeding ulcers etiology likely alcohol plus NSAIDS rec add'l unit be he declines alcohol: endorse frequent use not in withdrawal now continue ciwa indet trop: likely 2/2 SEVERE anemia reasonable to stress prior to dc i recommend stress test 05/24 but he declines importantly,. low rf profile and no exertional sx proph: scd's hypoalbuminemia: likely nutritional plus minus liver disease follow elevated lactate: result of severe anemia not sepsis no need to follow dispo: home today > 30 minutes we discussed risks and benefits of dc today vs transfusion and stress test. he acknowledges risk of his choosing dc today Subjective: eating. wishes for dc today Objective: Vital Signs Temp Pulse Resp BP Pulse Ox 36.9 C 80 18 136/74 H 92 05/23/18 08:09 05/23/18 08:09 05/23/18 08:09 05/23/18 08:09 05/23/18 08:09 Laboratory Results 05/23/18 08:02 05/22/18 05/23/18 05/24/18 05:59 05:59 05:59 Intake Total 2680 1000 Output Total 300 500 Balance 2380 500 PT 14.8 SEC (12.0-15.0) 05/21/18 16:30 INR 1.14 (0.83-1.16) 05/21/18 16:30 - Physical Exam Constitutional: no apparent distress, appears nourished Eyes: PERRL, anicteric sclera Ears, Nose, Mouth, Throat: moist mucous membranes, hearing normal Cardiovascular: regular rate and rhythym, no murmur, rub, or gallop Respiratory: no respiratory distress, no rales or rhonchi Gastrointestinal: normoactive bowel sounds, soft, non-tender abdomen Genitourinary: no bladder fullness, No mcclure in urethra Skin: warm, normal color Musculoskeletal: full muscle strength, no muscle tenderness Neurologic: AAOx3 Psychiatric: interacting appropriately ICD10 Worksheet Patient Problems: Problems Problem Status Onset Alcoholism Acute Anemia Acute GI bleed Acute
--- NOTE | 2018-05-23 13:51 | GDS ---
DISCHARGE DIAGNOSES: 1. Upper gastrointestinal bleed secondary to nonsteroidal anti-inflammatory drugs and alcohol. Uppe r endoscopy showed 2 large duodenal ulcers that were nonbleeding. 2. Acute blood loss anemia. 3. Likely iron deficiency. 4. Indeterminate troponin. Please see Admission History and Physical by Dr. Nikita Arzate. The patient presented with melena, wea kness, bright red blood per rectum. He was found to be anemic. He received transfusions. He underw ent scope with the aforementioned results. Troponins were checked and found to be indeterminate. I think this is secondary to lightheadedness. He had a nonischemic EKG. Does not have exertional symp toms. He received a total of 4 units of packed red cells. On the day of discharge, the patient's he moglobin was still below 8, and I recommended transfusion, which he declined. I recommended inpatien t stress test, which he also declined. I explained the risks and benefits of doing so, and he accept ed the risks and wishes for early discharge. He is discharged home with a prescription for 1 month o f iron and 2 months of b.i.d. PPI. /[id number]/MODL
[2018-05-24] MEDS ORDERED: THIAMINE HCL 100 MG TAB PO SCH (09:00)
== END 2018-05-23 15:09 | disposition home or self-care (01) | DRG 378 ==
LOC: EDUNIT# → F2N 18:43 → F3E 05-22 16:57
PROVIDERS: ADMIT Internal Medicine; ATTEND Internal Medicine
PROC: 30233N1 Transfusion of Nonautologous Red Blood Cells into Peripheral Vein, Percutaneous Approach (ICD-10-PCS; principal; 2018-05-22 09:30)
PROC: 0DB68ZX Excision of Stomach, Via Natural or Artificial Opening Endoscopic, Diagnostic (ICD-10-PCS; principal; 2018-05-22 09:30)
DX: K26.4 Chronic or unspecified duodenal ulcer with hemorrhage (principal); D62 Acute posthemorrhagic anemia; E88.09 Other disorders of plasma-protein metabolism, not elsewhere classified; I10 Essential (primary) hypertension; M54.5 Low back pain; F10.20 Alcohol dependence, uncomplicated
CPT/HCPCS: 82435-PO; 82565-PO; 82947-PO; 84132-PO; 84134-90; 84295-PO; 84520-PO; 85014-PO; 96374; 97116-GP; 97161-GP; 97165-GO; 97530-GP; G0480; J2060; J2704; J2916; J3411; J3480; P9016